=== PATIENT | female | born 1985 | race African-American/Black ===

== ENCOUNTER 2017-09-29 09:03 | Emergency (ER) | payer SELFPAY ==
[~2017-09-29] VITALS: Ht 162.6 cm; Wt 94.0 kg
[2017-09-29 09:10] VITALS: BP 131/86
== END 2017-09-29 10:35 | disposition home or self-care (01) ==
LOC: ED 09:31
DX: J20.9 Acute bronchitis, unspecified (principal); Z59.0 Homelessness
CPT/HCPCS: 71020; 87081; 87880

== ENCOUNTER 2017-12-15 19:00 | Emergency (ER) | payer MEDICAID, OTHER ==
[~2017-12-15] VITALS: Ht 167.6 cm; Wt 102.3 kg
[2017-12-15 19:06] VITALS: BP 138/95
[2017-12-15] MEDS ORDERED: DIPHENHYDRAMINE 50 MG CAPSULE PO ONE (19:30)
[2017-12-15] MEDS ORDERED: DIPHENHYDRAMINE 25 MG CAPSULE ONE ×2 (21:10→21:11)
[2017-12-15] MEDS ORDERED: FAMOTIDINE 20 MG TABLET PO ONE (21:30)
[2017-12-15] MEDS ORDERED: FAMOTIDINE 20 MG TABLET ONE (21:34)
== END 2017-12-15 21:41 | disposition home or self-care (01) ==
LOC: ED 21:39
DX: L50.9 Urticaria, unspecified (principal)
CPT/HCPCS: 99284; J7512